=== PATIENT | male | born 1960 | race Caucasian/White ===

== ENCOUNTER → 2016-12-24 | Outpatient (CLI) | payer BC ==
--- NOTE | 2016-12-24 21:39 | US ---
EXAMINATION TYPE: US kidneys/renal and bladder DATE OF EXAM: 12/24/2016 COMPARISON: NONE CLINICAL HISTORY: 56-year-old male Hematuria R31.9. TECHNIQUE: Multiple sonographic images of the kidneys and bladder are obtained. FINDINGS: [employer] notes: Large body habitus. Right Kidney: 13.9 x 7.1 x 5.7 cm, somewhat large in size, no hydronephrosis. There is an 8 mm echog enic focus at the upper pole suspicious for a nonobstructive calculus. Left Kidney: 14.6 x 6.0 x 6.1 cm, somewhat large in size without hydronephrosis. There are 2 adjacent echogenic foci in the mid pole measuring 7 mm and 5 mm. No gross abnormality of the bladder. IMPRESSION: 1. No hydronephrosis. 2. Somewhat large size of the kidney may relate to large patient size. Clinically correlate. 3. Possible nonobstructive renal calculi measuring up to 8 mm on the right and 7 mm on the left.
== END | disposition home or self-care (01) ==
LOC: RADUSWWP 14:04
PROVIDERS: ATTEND Internal Medicine
DX: R31.9 Hematuria, unspecified (principal)
CPT/HCPCS: 76770

== ENCOUNTER → 2017-01-08 | Outpatient (CLI) | payer BC ==
--- NOTE | 2017-01-08 16:28 | XR ---
EXAMINATION TYPE: XR KUB DATE OF EXAM: 01/08/2017 4:22 PM CLINICAL HISTORY: Bilateral no nephrolithiasis TECHNIQUE: Single supine KUB image of the abdomen is obtained. COMPARISON: Renal ultrasound dated 12/24/2016 FINDINGS: Right mid to lower pole renal calculus measures 4 mm and right lower pole calculus measures 2 to 3 mm. Left lower pole calculus measures approximately 7 mm with possible 1 to 2 mm punctate add itional left midpole calculus. Scattered gas is seen in non-distended small bowel loops. Gas and feca l material is seen in non-distended colon. There is no visceromegaly, pneumoperitoneum, or abnormal c alcification appreciated. The lung bases are clear and the osseous structures are intact. Right femor al arthroplasty is noted as well as moderate degenerative changes of the left femoral acetabular join t. Global increased density of the right iliac bone in comparison to the left is likely due to patien t positioning. No aggressive appearing osseous lesions are seen. IMPRESSION: 1. Bilateral renal calculi measuring up to 7 mm on the left and 4 mm on the right. 2. Nonobstructive bowel gas pattern.
== END | disposition home or self-care (01) ==
LOC: RADXRMAIN 16:09
PROVIDERS: ATTEND Urology
DX: N20.0 Calculus of kidney (principal)
CPT/HCPCS: 74000

== ENCOUNTER → 2017-02-26 | Outpatient (CLI) | payer BC ==
--- NOTE | 2017-02-26 17:27 | XR ---
EXAMINATION TYPE: XR KUB DATE OF EXAM: 02/26/2017 COMPARISON: 01/08/2017 INDICATION: Renal stones TECHNIQUE: Single view abdomen frontal projection FINDINGS: There is a normal bowel gas pattern. Psoas margins are normal. No organomegaly is present. There is a 0.7 cm calcification in the mid to inferior pole right kidney. There appear to be 2 puncta te calcifications at the inferior pole right kidney measuring 0.3 cm. The left renal calcification is less well visualized and may remain present measuring 0.2 cm in transverse dimension by approximatel y 0.5 cm in craniocaudal dimension. IMPRESSION: 1. Bilateral renal stones. Left renal stone appears smaller measuring 0.5 cm in maximum dimension. 2. A mid right renal stone may be larger measuring 0.7 cm with stable smaller 0.3 cm renal stones at the inferior pole right kidney.
== END | disposition home or self-care (01) ==
LOC: RADXRMAIN 16:09
PROVIDERS: ATTEND Urology
DX: N20.0 Calculus of kidney (principal)
CPT/HCPCS: 74018

== ENCOUNTER → 2017-06-06 | Outpatient (CLI) | payer BC ==
--- NOTE | 2017-06-06 15:51 | XR ---
EXAMINATION TYPE: XR KUB DATE OF EXAM: 06/06/2017 COMPARISON: 02/26/2017 INDICATION: Bilateral renal stones TECHNIQUE: Supine view FINDINGS: There is a normal bowel gas pattern. Psoas margins are normal. No organomegaly is present. 3 punctate calcifications are present at the inferior pole right kidney measuring 0.3 cm in size. Lef t renal stones are not identified on the current examination. IMPRESSION: 1. Inferior pole right renal stones.
== END | disposition home or self-care (01) ==
LOC: RADXRMAIN 15:27
PROVIDERS: ATTEND Urology
DX: N20.0 Calculus of kidney (principal)
CPT/HCPCS: 74018

== ENCOUNTER → 2017-09-09 | Outpatient (CLI) | payer BC ==
--- NOTE | 2017-09-09 08:09 | XR ---
EXAMINATION TYPE: XR abdomen 1V DATE OF EXAM: 09/09/2017 COMPARISON: 06/06/2017 INDICATION: Kidney stone left side TECHNIQUE: Single view abdomen supine view FINDINGS: There is a normal bowel gas pattern. Psoas margins are normal. No organomegaly is present. There are 0.5 and 0.4 cm calcifications in transverse dimension at the inferior pole of the right kid rosalinda. No left-sided renal stones are identified. Calcifications were present previously. The inferior pole calcification may be larger than prior but may be summation of second adjacent calcification not separate as on the previous exam. IMPRESSION: 1. Inferior pole right renal stones.
== END | disposition home or self-care (01) ==
LOC: RADXRMAIN 07:20
PROVIDERS: ATTEND Urology
DX: N20.0 Calculus of kidney (principal)
CPT/HCPCS: 74018

== ENCOUNTER → 2018-09-10 | Outpatient (CLI) | payer BC ==
--- NOTE | 2018-09-10 16:27 | XR ---
EXAMINATION TYPE: XR KUB DATE OF EXAM: 09/10/2018 COMPARISON: 08/13/2018 HISTORY: Pain TECHNIQUE: Single supine KUB image of the abdomen is obtained FINDINGS: Small bowel demonstrates no evidence for dilatation or air fluid levels. Gas and fecal material is seen in non-distended colon. No convincing evidence for pneumoperitoneum. Bilateral nephrolithiasis noted. Large calculus left kidney measures up to 2.1 x 1.5 cm. Largest calc ulus lower pole right kidney measures 4.5 mm. The lung bases are clear. The osseous structures are intact. IMPRESSION: 1. Bilateral nephrolithiasis.
== END | disposition home or self-care (01) ==
LOC: RADXRMAIN 16:10
PROVIDERS: ATTEND Urology
DX: N20.0 Calculus of kidney (principal)
CPT/HCPCS: 74018

== ENCOUNTER → 2019-02-02 | Outpatient (CLI) | payer BC ==
--- NOTE | 2019-02-02 12:33 | XR ---
EXAMINATION TYPE: XR KUB DATE OF EXAM: 02/02/2019 HISTORY: Pain Comparison: 09/10/2018 Single KUB is submitted for interpretation. Findings: Right renal calculi: 5.4 mm calculus mid to lower pole right kidney with an additional 4 mm calculus lower pole right kidney. There is a third calculus lower pole right kidney measuring 3 mm. Right ureteral calculi: None Visualized. Left renal calculi: Enlarging left renal calculi measuring 2.6 x 1.6 cm versus 2.2 x 1.[address] Additional smaller calculus lower pole left kidney measures 9.5 mm. Left ureteral calculi: None Visualized. Pelvic calcifications: None Visualized. Bowel gas pattern is unremarkable. No free air. No mass effects. IMPRESSION: 1. Bilateral nephrolithiasis.
== END | disposition home or self-care (01) ==
LOC: RADXRMAIN 11:36
PROVIDERS: ATTEND Urology
DX: N20.0 Calculus of kidney (principal)
CPT/HCPCS: 74018

== ENCOUNTER → 2019-08-25 | Outpatient (CLI) | payer BC ==
--- NOTE | 2019-08-25 17:01 | XR ---
EXAMINATION TYPE: XR KUB DATE OF EXAM: 08/25/2019 Comparison: 02/02/2019 Clinical History: 59-year-old male N20.0 Kidney Stone Findings: Right hip total arthroplasty partially visualized. Mild degenerative changes left hip. Redemonstrated 2 large calcifications left kidney measuring up to 2.6 x 1.8 cm and 1.4 x 0.7 cm and t he left kidney and 4 mm on the right kidney. Previous 5 mm calcification right kidney is no longer id entified. Nonobstructive bowel gas pattern. Mild stool burden. Impression: 1. Redemonstrated two left renal calculi measuring 2.6 x 1.8 cm and 1.4 x 0.7 cm. 2. Presently, only the 4 mm right lower pole renal calculus is seen. The 5 mm calculus seen on 019 is no longer identified.
== END | disposition home or self-care (01) ==
LOC: RADXRMAIN 13:36
PROVIDERS: ATTEND Urology
DX: N20.0 Calculus of kidney (principal)
CPT/HCPCS: 74018

== ENCOUNTER → 2020-02-22 | Outpatient (CLI) | payer BC ==
--- NOTE | 2020-02-22 17:43 | XR ---
EXAMINATION TYPE: XR KUB DATE OF EXAM: 02/22/2020 COMPARISON: 08/25/2019 HISTORY: Kidney stones. Pain TECHNIQUE: Single view FINDINGS: There is 3 cm calculus over the left renal hilum. There is 1 cm calculus over lower pole le ft kidney. There is 4 mm calculus lower pole right kidney. The bowel gas pattern is normal. There is no sign of intestinal obstruction or pneumoperitoneum. Fecal pattern is normal. There is right hip pr osthesis. IMPRESSION: Bilateral renal calculi unchanged compared to old exam. Nonacute abdomen.
== END | disposition home or self-care (01) ==
LOC: RAD 16:43
PROVIDERS: ATTEND Urology
DX: N20.0 Calculus of kidney (principal)
CPT/HCPCS: 74018

== ENCOUNTER 2021-05-19 12:38 | Emergency (ER) | payer BC ==
--- NOTE | 2021-05-19 16:17 | XR ---
EXAMINATION TYPE: XR KUB DATE OF EXAM: 05/19/2021 COMPARISON: X-ray dated 02/22/2020 INDICATION: Back pain, history of renal stones TECHNIQUE: Single upright view of the abdomen and pelvis. FINDINGS: Large left renal pelvis stone measuring 3.5 cm compared to 2.9 cm previously. Elongated left lower po le renal stone measuring 19 mm compared to 14 mm previously. Suspected right renal pelvis stone measuring 7 mm with right lower pole 5 mm stone. Questionable tiny stone versus artifact at the superior medial aspect of the left kidney measuring 11 mm. No free air under the diaphragm. No multiple air fluid levels or signs of acute high-grade small magi l obstruction. Fecal loading of the right hemicolon. Right total hip arthroplasty. Degenerative boogie es of the left hip joint. IMPRESSION: Bilateral renal calculi as described above.
[2021-05-19 16:19] LABS: ALT 16 U/L (4-49); AST 17 U/L (17-59); African American GFR (CKD) >90 (>60 ml/min/1.73 sqM); Albumin 4.1 g/dL (3.5-5.0); Alkaline Phosphatase 45 U/L (38-126); Anion Gap 9 mmol/L; Blood Urea Nitrogen 16 mg/dL (9-20); Calcium 8.8 mg/dL (8.4-10.2); Carbon Dioxide 24 mmol/L (22-30); Chloride 102 mmol/L (98-107); Glucose 106 mg/dL (74-99); Non-African American GFR(CKD) >90 (>60 ml/min/1.73 sqM); Potassium 4.1 mmol/L (3.5-5.1); Sodium 135 mmol/L (137-145); Total Bilirubin 0.5 mg/dL (0.2-1.3); Total Protein 6.9 g/dL (6.3-8.2)
--- NOTE | 2021-05-19 16:28 | ED ---
General Adult HPI - General Chief complaint: ENT Stated complaint: Sinus Infection Time Seen by Provider: 05/19/21 14:54 Source: patient Mode of arrival: ambulatory Limitations: no limitations - History of Present Illness Initial comments: Patient is a 61-year-old male presenting with chief complaint of sinus pressure and back pain. Patient states that he has had increased sinus pressure and nasal discharge for over a month. States that about 3-4 weeks ago he was treated with Cipro by his PCP for a sinus infection. Patient states that to improve the nasal discharge and drainage, changed color from green to clear, but patient still has frequent mucus build-up. Drainage causes sore throat and cough. Admits to some ear fullness occasionally. States he has been taking a decongestant and cold and flu medication which is somewhat helpful but symptoms always return. Patient states that last night he began to feel somewhat dizzy and he cease taking medication. He denies fever, chills, nausea, vomiting, chest pain, shortness of breath, abdominal pain, hematuria, dysuria, urgency, frequency, headache, vision or hearing changes. Patient is also complaining of back pain. It is located in the right-sided lower back. Patient states he has a history of kidney stones and this feels similar to stones he has had in the past. Patient admits to some bloating and pain with position changes. Patient states that his urine has been somewhat rosario ker lately, but no queenie blood noted as he has in the past with kidney stones. - Related Data Previous Rx's Medication Instructions Recorded methylPREDNISolone Dose Pack 4 mg PO DIRECTED #1 packet 05/19/21 [Medrol Dose Pack] Allergies Allergy/AdvReac Type Severity Reaction Status Date / Time Iodinated Contrast Media Allergy Rash/Hives Verified 05/19/21 12:43 Review of Systems ROS Statement: Those systems with pertinent positive or pertinent negative responses have been documented in the HPI. ROS Other: All systems not noted in ROS Statement are negative. Past Medical History Past Medical History: Hypertension History of Any Multi-Drug Resistant Organisms: None Reported Past Surgical History: Joint Replacement Past Psychological History: No Psychological Hx Reported Smoking Status: Never smoker Past Alcohol Use History: Occasional Past Drug Use History: Marijuana General Exam Limitations: no limitations General appearance: alert, in no apparent distress Head exam: Present: atraumatic, normocephalic, normal inspection Eye exam: Present: normal appearance, PERRL, EOMI. Absent: scleral icterus, conjunctival injection, periorbital swelling ENT exam: Present: mucous membranes moist, other (No sinus tenderness on palpation) Expanded TM/Canal exam: Erythema: Right TM, Left TM (Mild erythema bilaterally, likely due to congestion and increased pressure) Neck exam: Present: normal inspection Respiratory exam: Present: normal lung sounds bilaterally. Absent: respiratory distress, wheezes, rales, rhonchi, stridor Cardiovascular Exam: Present: regular rate, normal rhythm, normal heart sounds. Absent: systolic murmur, diastolic murmur, rubs, gallop, clicks GI/Abdominal exam: Present: soft, normal bowel sounds. Absent: distended, tenderness, guarding, rebound, rigid Back exam: Present: normal inspection. Absent: CVA tenderness (R), CVA tenderness (L) Neurological exam: Present: alert, oriented X3, CN II-XII intact Psychiatric exam: Present: normal affect, normal mood Skin exam: Present: warm, dry, intact, normal color. Absent: rash Course Vital Signs 05/19/21 05/19/21 12:40 17:18 Temperature 98.7 F 97.8 F Pulse Rate 89 82 Respiratory 20 18 Rate Blood Pressure 155/91 135/70 O2 Sat by Pulse 97 97 Oximetry Medical Decision Making - Medical Decision Making Patient is a 61-year-old male presenting with chief complaint of sinus thien estion and back pain. Patient states that for several weeks he has been experiencing sinus tenderness and increased drainage. About 3-4 weeks ago he was treated for sinus infection with Cipro, patient stated that symptoms improved, drainage changed from green to clear in color. However over the last week he has had a copious amount of nasal drainage. He currently takes NyQuil and DayQuil for this, with some relief. Patient also states he has been experiencing back pain on lower right side for the last week. Patient states this feels similarly to kidney stones he has had in the past. He admits to bloating and states his urine was darker than normal today. Patient states that he follows with a urologist, he has known stones in the kidney and has plans for extraction with his urologist. On examination there is no tenderness on palpation of the sinuses, some erythema of the bilateral TMs likely due to increased pressure from his congestion. No CVA tenderness or abdominal tenderne ss. Covid test is negative. Urine is remarkable for blood, likely due to known stones in the kidney. KUB x-ray is remarkable for bilateral renal calculi. I explained the findings to the patient. I instructed him to follow up with his urologist this week. I prescribed a Medrol Dosepak for his sinusitis symptoms, instructed him on supportive treatment with [id number] medication, and instructed him to follow up with his primary care on Saturday. I answered all questions and explained parameters for return. Patient conveyed verbal understanding and agreed to the plan. I discussed this case with my attending Dr. Meraz. - Lab Data Result diagrams: 05/19/21 15:53 05/19/21 15:53 Lab Results 05/19/21 05/19/21 05/19/21 Range/Units 12:45 15:53 15:53 WBC 5.6 (3.8-10.6) k/uL RBC 4.65 (4.30-5.90) m/uL Hgb 14.2 (13.0-17.5) gm/dL Hct 41.7 (39.0-53.0) % MCV 89.7 (80.0-100.0) fL MCH 30.5 (25.0-35.0) pg MCHC 34.0 (31.0-37.0) g/dL RDW 12.6 (11.5-15.5) % Plt Count 196 (150-450) k/uL MPV 7.0 Neutrophils % 52 % Lymphocytes % 36 % Monocytes % 7 % Eosinophils % 1 % Basophils % 0 % Neutrophils # 2.9 (1.3-7.7) k/uL Lymphocytes # 2.0 (1.0-4.8) k/uL Monocytes # 0.4 (0-1.0) k/uL Eosinophils # 0.1 (0-0.7) k/uL Basophils # 0.0 (0-0.2) k/uL Sodium (137-145) mmol/L Potassium (3.5-5.1) mmol/L Chloride (98-107) mmol/L Carbon Dioxide (22-30) mmol/L Anion Gap mmol/L BUN (9-20) mg/dL Creatinine (0.66-1.25) mg/dL Est GFR (CKD-EPI)AfAm (>60 ml/min/1.73 sqM) Est GFR (CKD-EPI)NonAf (>60 ml/min/1.73 sqM) Glucose (74-99) mg/dL Calcium (8.4-10.2) mg/dL Total Bilirubin (0.2-1.3) mg/dL AST (17-59) U/L ALT (4-49) U/L Alkaline Phosphatase (38-126) U/L Total Protein (6.3-8.2) g/dL Albumin (3.5-5.0) g/dL Urine Color Light Red Urine Appearance Clear (Clear) Urine pH 5.5 (5.0-8.0) Ur Specific Nora 1.021 (1.001-1.035) Urine Protein 1+ H (Negative) Urine Glucose (UA) Negative (Negative) Urine Ketones Negative (Negative) Urine Blood Large H (Negative) Urine Nitrite Negative (Negative) Urine Bilirubin Negative (Negative) Urine Urobilinogen <2.0 (<2.0) mg/dL Ur Leukocyte Esterase Small H (Negative) Urine RBC >182 H (0-5) /hpf Urine WBC 5 (0-5) /hpf Urine Mucus Occasional H (None) /hpf Urine Yeast (Budding) Few H (None) /hpf Coronavirus (PCR) Not Detected (Not Detectd) 05/19/21 Range/Units 15:53 WBC (3.8-10.6) k/uL RBC (4.30-5.90) m/uL Hgb (13.0-17.5) gm/dL Hct (39.0-53.0) % MCV (80.0-100.0) fL MCH (25.0-35.0) pg MCHC (31.0-37.0) g/dL RDW (11.5-15.5) % Plt Count (150-450) k/uL MPV Neutrophils % % Lymphocytes % % Monocytes % % Eosinophils % % Basophils % % Neutrophils # (1.3-7.7) k/uL Lymphocytes # (1.0-4.8) k/uL Monocytes # (0-1.0) k/uL Eosinophils # (0-0.7) k/uL Basophils # (0-0.2) k/uL Sodium 135 L (137-145) mmol/L Potassium 4.1 (3.5-5.1) mmol/L Chloride 102 (98-107) mmol/L Carbon Dioxide 24 (22-30) mmol/L Anion Gap 9 mmol/L BUN 16 (9-20) mg/dL Creatinine 0.62 L (0.66-1.25) mg/dL Est GFR (CKD-EPI)AfAm >90 (>60 ml/min/1.73 sqM) Est GFR (CKD-EPI)NonAf >90 (>60 ml/min/1.73 sqM) Glucose 106 H (74-99) mg/dL Calcium 8.8 (8.4-10.2) mg/dL Total Bilirubin 0.5 (0.2-1.3) mg/dL AST 17 (17-59) U/L ALT 16 (4-49) U/L Alkaline Phosphatase 45 (38-126) U/L Total Protein 6.9 (6.3-8.2) g/dL Albumin 4.1 (3.5-5.0) g/dL Urine Color Urine Appearance (Clear) Urine pH (5.0-8.0) Ur Specific Nora (1.001-1.035) Urine Protein (Negative) Urine Glucose (UA) (Negative) Urine Ketones (Negative) Urine Blood (Negative) Urine Nitrite (Negative) Urine Bilirubin (Negative) Urine Urobilinogen (<2.0) mg/dL Ur Leukocyte Esterase (Negative) Urine RBC (0-5) /hpf Urine WBC (0-5) /hpf Urine Mucus (None) /hpf Urine Yeast (Budding) (None) /hpf Coronavirus (PCR) (Not Detectd) - Radiology Data Radiology results: report reviewed, image reviewed KUB x-ray: Bilateral renal calculi Disposition Clinical Impression: Sinusitis, Nephrolithiasis Disposition: HOME SELF-CARE Condition: Good Instructions (If sedation given, give patient instructions): Kidney Stones (ED), Sinusitis (ED) Additional Instructions: You may take Mucinex as needed. You may take an antihistamine such as Claritin, Zyrtec, Malina, etc. as needed. Antihistamines at times may cause dizziness, discontinue if you experience this side effect. You may take Flonase as needed. Take Medrol Dosepak as prescribed. Follow up with your primary care on Saturday. Follow-up with your urologist this week. Report back to ER with any worsening symptoms or new onset alarm symptoms, including but not limited to fever, chills, vision or hearing changes, headache, abdominal pain, blood in the urine, chest pain, shortness of breath. Prescriptions: methylPREDNISolone Dose Pack [Medrol Dose Pack] 4 mg PO DIRECTED #1 packet Is patient prescribed a controlled substance at d/c from ED?: No Referrals: Radha Izquierdo MD [Primary Care Provider] - 1-2 days Time of Disposition: 17:00
[2021-05-19 16:32] LABS: Appearance,Urine Clear (Clear); Bilirubin,Urine Negative (Negative); Blood,Urine Large (Negative); Budding Yeast,Urine Few /hpf; Color,Urine Light Red; Glucose,Urine (UA) Negative (Negative); Ketones,Urine Negative (Negative); Leukocyte Esterase,Urine Small (Negative); Mucus,Urine Occasional /hpf; Nitrite,Urine Negative (Negative); PH, Urine 5.5 (5.0-8.0); Protein,Urine 1+ (Negative); RBC,Urine >182 /hpf (0-5); Specific Gravity,Urine 1.021 (1.001-1.035); Urobilinogen,Urine <2.0 mg/dL (<2.0); WBC,Urine 5 /hpf (0-5)
[2021-05-19 16:41] LABS: Basophils % (A) 0 %; Eosinophils # (A) 0.1 k/uL (0-0.7); Eosinophils % (A) 1 %; HCT 41.7 % (39.0-53.0); HGB 14.2 gm/dL (13.0-17.5); Lymphocytes % (A) 36 %; MCH 30.5 pg (25.0-35.0); MCV 89.7 fL (80.0-100.0); Monocytes # (A) 0.4 k/uL (0-1.0); Monocytes % (A) 7 %; Neutrophils # (A) 2.9 k/uL (1.3-7.7); Neutrophils % (A) 52 %; Platelet Count 196 k/uL (150-450); RBC 4.65 m/uL (4.30-5.90); RDW 12.6 % (11.5-15.5); WBC 5.6 k/uL (3.8-10.6)
[2021-05-19 17:19] VITALS: BP 135/70; PULSE 82; RESP 18; TEMP 97.8
== END 2021-05-19 17:18 | disposition home or self-care (01) ==
LOC: EC 12:38
DX: J32.9 Chronic sinusitis, unspecified (principal); N20.0 Calculus of kidney; I10 Essential (primary) hypertension; Z91.041 Radiographic dye allergy status; Z20.822 Contact with and (suspected) exposure to COVID-19
CPT/HCPCS: 36415; 74018; 80053; 81001; 85025; 87635; 99283

== ENCOUNTER → 2023-02-21 | Outpatient (CLI) | payer BC ==
--- NOTE | 2023-02-22 08:20 | CT ---
EXAMINATION TYPE: CT abdomen pelvis wo con DATE OF EXAM: 02/21/2023 HISTORY: recent renal stone removal surgery, follow up CT DLP: 1426 mGycm. Automated Exposure Control for Dose Reduction was Utilized. TECHNIQUE: CT scan of the abdomen and pelvis is performed without oral or IV contrast. COMPARISON: Prior CT November 01, 2022 FINDINGS: Within the limitations of a non-contrast study, the following observations are made. LUNG BASES: No significant abnormality is appreciated. LIVER/GB: No significant abnormality is appreciated. PANCREAS: No significant abnormality is seen. SPLEEN: No significant abnormality is seen. ADRENALS: No significant abnormality is seen. KIDNEYS: No right-sided renal calculi or hydronephrosis. There are now multiple left-sided renal calc sangita with approximately 8 distinct calculi seen including largest irregular calcification or calculus measuring near 2.1 cm lower pole left kidney axial image 69. There is linear dystrophic calcification posterior to this along site of prior percutaneous access as there is adjacent scar tissue posterior to the kidney noted. There is new left-sided double-J ureter stent. No definitive calculus in the ur inary bladder. BOWEL: Normal-appearing appendix incidentally noted. GENITAL ORGANS: No gross abnormality seen. LYMPH NODES: No greater than 1cm abdominal or pelvic lymph nodes are appreciated. OSSEOUS STRUCTURES: Metallic hardware from total Right hip arthroplasty redemonstrated causing streak artifact making evaluation of pelvis slightly vogel boptimal. Moderate to severe narrowing in the left hip is redemonstrated. OTHER: No significant additional abnormality is seen. IMPRESSION: Successful positioning of new double-J left ureteral stent. Current study has several sma ller left sided renal calculi and a larger lower pole calcification possible staghorn type calculus.
== END | disposition home or self-care (01) ==
LOC: RADCTMAIN 08:05
PROVIDERS: ATTEND Urology
DX: N20.0 Calculus of kidney (principal); Z96.0 Presence of urogenital implants
CPT/HCPCS: 74176

== ENCOUNTER → 2023-03-07 | Outpatient (CLI) | payer BC ==
[2023-03-07 18:28] LABS: BUN/Creat Ratio 23.75 Ratio (12.00-20.00); Calcium 9.1 mg/dL (8.7-10.3); Carbon Dioxide 23.2 mmol/L (21.6-31.8); Chloride 102 mmol/L (96-109); Glucose 118 mg/dL (70-110); Potassium 4.2 mmol/L (3.5-5.5); Sodium 137 mmol/L (135-145)
== END | disposition home or self-care (01) ==
LOC: LABWHC1 13:03
PROVIDERS: ATTEND Urology
DX: N20.0 Calculus of kidney (principal)
CPT/HCPCS: 36415; 80048

== ENCOUNTER → 2023-05-10 | Outpatient (CLI) | payer BC ==
--- NOTE | 2023-05-10 11:47 | US ---
EXAMINATION TYPE: US kidneys/renal and bladder DATE OF EXAM: 05/10/2023 COMPARISON: CT 02/21/2023 CLINICAL INDICATION: Male, 63 years old with history of N20.0 CALCULUS OF KIDNEY; Patient states hx o f kidney stones and surgery to remove kidney stones. EXAM MEASUREMENTS: Right Kidney: 11.9 x 6.3 x 5.7 cm Left Kidney: 12.8 x 6.3 x 5.6 cm Slightly limited due to overlying gas and patient body habitus Right Kidney: No hydronephrosis or masses seen as best visualized Left Kidney: There is a 0.7 x 0.7cm echogenic foci seen in the inferior pole Bladder: wnl Bilateral Jets seen: No IMPRESSION: 1. No evidence for obstructive uropathy. 2. Left nonobstructing renal calculus.
== END | disposition home or self-care (01) ==
LOC: RADUSWWP 10:15
PROVIDERS: ATTEND Urology
DX: N20.0 Calculus of kidney (principal)
CPT/HCPCS: 76770

== ENCOUNTER → 2024-01-09 | Outpatient (CLI) | payer BC | END | disposition home or self-care (01) | LOC: LABWHC1 09:54 | PROVIDERS: ATTEND Urology | DX: Z53.9 Procedure and treatment not carried out, unspecified reason (principal) ==

== ENCOUNTER → 2024-01-09 | Outpatient (CLI) | payer BC ==
--- NOTE | 2024-01-09 12:28 | US ---
EXAMINATION TYPE: US kidneys/renal and bladder DATE OF EXAM: 01/09/2024 COMPARISON: Renal ultrasound 05/10/2023, CT abdomen and pelvis 02/21/2023 CLINICAL INDICATION: Male, 64 years old with history of N20.0 Kidney stone; h/o stones, surgical sandrita ericka of left renal stone last year, no symptoms or hematuria today TECHNIQUE: Grayscale imaging of the bilateral kidneys and urinary bladder: FINDINGS: EXAM MEASUREMENTS: Right Kidney: 13.7 x 6.5 x 6.8 cm Left Kidney: 14.4 x 5.8 x 7.6 cm Right Kidney: No hydronephrosis or masses seen, large in size Left Kidney: large in size, multiple echogenic foci seen, largest =1.0 x 1.7cm mid pole, Bladder: wnl There is no evidence for hydronephrosis at this point in time. No right renal shadowing calculi. Cou ple of left renal shadowing calculi with largest measuring up to 1.7 cm. No masses are identified. T he urinary bladder is anechoic. IMPRESSION: 1. No hydronephrosis. 2. Nonobstructive left renal calculi. [facility], , 01/09/2024 12:26 PM
[2024-01-09 16:04] LABS: Blood Urea Nitrogen 15.4 mg/dL (9.0-27.0); Calcium 9.6 mg/dL (8.7-10.3); Carbon Dioxide 23.1 mmol/L (21.6-31.8); Chloride 101 mmol/L (96-109); Glucose 97 mg/dL (70-110); Potassium 4.4 mmol/L (3.5-5.5); Sodium 135 mmol/L (135-145)
== END | disposition home or self-care (01) ==
LOC: RADUSWWP 09:49
PROVIDERS: ATTEND Urology
DX: N20.0 Calculus of kidney (principal)
CPT/HCPCS: 76770; 80048; 84153

== ENCOUNTER → 2024-04-23 | Outpatient (CLI) | payer BC ==
--- NOTE | 2024-04-23 10:04 | US ---
EXAMINATION TYPE: US kidneys/renal and bladder DATE OF EXAM: 04/23/2024 COMPARISON: CT CLINICAL INDICATION: Male, 64 years old with history of N20.0 KIDNEY STONE; Hx renal stones. Hx left renal calcs removed in Mar. No current symptoms. TECHNIQUE: Grayscale imaging of the bilateral kidneys and urinary bladder: FINDINGS: EXAM MEASUREMENTS: Right Kidney: 13.5 x 5.8 x 6.2 cm Left Kidney: 14.9 x 5.7 x 6.7 cm Right Kidney: No hydronephrosis or masses seen Left Kidney: Enlarged in size. Possible hydro vs dilated renal collecting system. Lateral lower cor tical echogenic area with shadowing = 0.8 x 0.7 cm Bladder: Distended, anechoic Bilateral Jets not seen There is no evidence for hydronephrosis at this point in time. No nephrolithiasis is seen. No janna s are identified. The urinary bladder is anechoic. 1. IMPRESSION: 2. Mild left hydronephrosis versus chronic dilation from prior hydronephrosis.. Correlate for obstru ctive uropathy. 3. Nonobstructing left renal cortical calculus. [facility], , 04/23/2024 10:01 AM
== END | disposition home or self-care (01) ==
LOC: RADUSWWP 09:13
PROVIDERS: ATTEND Urology
DX: N20.0 Calculus of kidney (principal)
CPT/HCPCS: 76770